=== PATIENT | female | born 1990 | race Caucasian/White ===

== ENCOUNTER 2017-07-02 11:24 | Emergency (ER) | payer SELFPAY ==
--- NOTE | 2017-07-02 13:08 | UC ---
Skin Complaint HPI - HPI Summary HPI Summary: This is an otherwise healthy female who presents with c/o rash on her elbow that she noticed for the last 2d. She has been afebrile, no malaise. No rash on other parts of her body. No known tick bite. No recent illness. She reports a burning sensation associated with the rash. - History of Current Complaint Chief Complaint: UCSkin Stated Complaint: RASH Hx Last Menstrual Period: 2-3 wks ago - Allergy/Home Medications Allergies/Adverse Reactions: Allergies Allergy/AdvReac Type Severity Reaction Status Date / Time No Known Allergies Allergy Verified 07/02/17 11:42 Home Medications: Home Medications Drospirenone-Ethinyl Estradiol [Nellie 3-0.02 mg] 1 tab PO ONCE 07/02/17 [History Confirmed 07/02/17] Review of Systems Constitutional: Negative Skin: Rash Eyes: Negative ENT: Negative Respiratory: Negative Cardiovascular: Negative Gastrointestinal: Negative Genitourinary: Negative Motor: Negative Neurovascular: Negative Musculoskeletal: Negative Neurological: Negative Psychological: Negative All Other Systems Reviewed And Are Negative: Yes PMH/Surg Hx/FS Hx/Imm Hx Previously Healthy: Yes - Surgical History Surgical History: None - Family History Known Family History: Positive: None - Social History Alcohol Use: Occasionally Substance Use Type: None Smoking Status (MU): Never Smoked Tobacco Physical Exam Triage Information Reviewed: Yes Appearance: Well-Appearing Vital Signs: Initial Vital Signs Temp 98.9 F 07/02/17 11:38 Pulse 73 07/02/17 11:38 Resp 18 07/02/17 11:38 BP 139/95 07/02/17 11:38 Pulse Ox 100 07/02/17 11:38 Vital Signs Reviewed: Yes Neck: Positive: Supple, Nontender, No Lymphadenopathy Respiratory: Positive: Chest non-tender, Lungs clear. Negative: Crackles, Rhonchi, Stridor, Wheezing Cardiovascular: Positive: RRR, No Murmur Skin: Positive: Other - area of erythema surrounding lateral epicondyle with some clearing peripherally and mild warm to touch. Course/Dx - Course Course Of Treatment: This is an otherwise healthy 26 yo female who presents with c/o rash over the R elbow that has been present for 2-3 days. Differential includes Lyme v. cellulitis. After discussion with patient, elected to treat empirically for Lyme which will also cover cellulitis. - Differential Diagnoses - Skin Complaint Differential Diagnoses: Cellulitis, Drug Rash, Urticaria - Diagnoses Provider Diagnoses: 1. Erythema migrans - suspected Lyme Discharge - Discharge Plan Condition: Stable Disposition: HOME Prescriptions: DOXYcycline CAP(*) [DOXYcycline 100MG CAP(*)] 100 mg PO BID #28 cap Patient Education Materials: Lyme Disease (ED) Referrals: No Primary Care Phys,NOPCP [Primary Care Provider] -
== END 2017-07-02 13:17 | disposition home or self-care (01) ==
LOC: UCEAST 11:24
DX: A26.0 Cutaneous erysipeloid (principal)
CPT/HCPCS: 99202; G0463

== ENCOUNTER 2017-11-20 19:34 | Emergency (ER) | payer OTHER ==
[2017-11-20 19:44] VITALS: BP 149/78
[2017-11-20] MEDS ORDERED: Phenazopyridine TAB* 100 MG PO ONE ×2 (20:11→20:12)
[2017-11-20] MEDS ORDERED: Cephalexin CAP* 500 MG PO ONE ×2 (20:12)
--- NOTE | 2017-11-20 20:22 | UC ---
Complaint Female HPI - HPI Summary HPI Summary: 27 yo female with dysuria /urgency and frequency x 4 hours no f/c no n/v no vag d/c or itch no back or abd pain - History Of Current Complaint Chief Complaint: UCGU Stated Complaint: POSS UTI Time Seen by Provider: 11/20/17 19:36 Hx Obtained From: Patient Hx Last Menstrual Period: <1 WEEK AGO Onset/Duration: Sudden Onset, Lasting Hours Timing: Intermittent, Lasting Minutes Severity Initially: Moderate Severity Currently: None Pain Intensity: 0 - intense pain (terminal dysuria) followed by a few minutes of bruning post void Pain Scale Used: 0-10 Numeric Character: Burning Aggravating Factor(s): Urination Associated Signs And Symptoms: Negative: Fever, Back Pain, Vaginal Bleeding/ Discharge, Vaginal Discharge, Nausea, Vomiting(# Of Episodes =), Genital Swelling - Allergies/Home Medications Allergies/Adverse Reactions: Allergies Allergy/AdvReac Type Severity Reaction Status Date / Time No Known Allergies Allergy Verified 11/20/17 19:44 PMH/Surg Hx/FS Hx/Imm Hx Previously Healthy: Yes - Surgical History Surgical History: None - Family History Known Family History: Positive: None Negative: Cardiac Disease, Hypertension, Diabetes - Social History Alcohol Use: Occasionally Substance Use Type: None Smoking Status (MU): Never Smoked Tobacco Review of Systems Constitutional: Negative Skin: Negative Eyes: Negative ENT: Negative Respiratory: Negative Cardiovascular: Negative Gastrointestinal: Negative Genitourinary: Dysuria, Frequency, Urgency Motor: Negative Neurovascular: Negative Musculoskeletal: Negative Neurological: Negative Psychological: Negative Is Patient Immunocompromised?: No All Other Systems Reviewed And Are Negative: Yes Physical Exam Triage Information Reviewed: Yes Appearance: Well-Appearing, No Pain Distress, Well-Nourished Vital Signs: Initial Vital Signs Temp 98.9 F 11/20/17 19:41 Pulse 110 11/20/17 19:41 Resp 16 11/20/17 19:41 BP 149/78 11/20/17 19:41 Pulse Ox 100 11/20/17 19:41 Vital Signs Reviewed: Yes Eyes: Positive: Conjunctiva Clear ENT: Positive: Hearing grossly normal, Uvula midline. Negative: Nasal congestion, Nasal drainage, Trismus, Muffled voice, Hoarse voice Neck: Positive: Supple, Nontender, No Lymphadenopathy Respiratory: Positive: Lungs clear, Normal breath sounds, No respiratory distress Cardiovascular: Positive: RRR, No Murmur Abdomen Description: Positive: Nontender, No Organomegaly. Negative: CVA Tenderness (R), CVA Tenderness (L) Neurological Exam: Normal Neurological: Positive: Alert Psychological Exam: Normal Skin Exam: Normal Complaint Female Dx - Differential Dx/Diagnosis Provider Diagnoses: acute cystitis Discharge - Discharge Plan Condition: Stable Disposition: HOME Prescriptions: Cephalexin CAP* [Keflex CAP*] 500 mg PO BID #8 cap Phenazopyridine TAB* [Pyridium TAB*] 100 mg PO TID #4 tab Patient Education Materials: Urinary Tract Infection in Women (ED) [facility] [Primary Care Provider] -
== END 2017-11-20 20:34 | disposition home or self-care (01) ==
LOC: UCEAST 19:34
DX: N30.00 Acute cystitis without hematuria (principal)
CPT/HCPCS: 81003; 87077; 87086; 87186; 99213; A9270-GY; G0463